=== PATIENT | male | born 1950 | race Caucasian/White ===

== ENCOUNTER 2018-05-31 07:24 | Day surgery (SDC) | payer OTHER ==
[2018-05-31] MEDS: BETADINE OPTH PREP OP PRN ×2 (08:27→09:31)
[2018-05-31] MEDS: TETRACAINE 0.5% UNIT-DOSE OP PRN ×2 (08:27→09:31)
[2018-05-31] MEDS: CYCLOGYL 2% OPTH OP PRN ×3 (08:28→08:38)
[2018-05-31] MEDS ORDERED: BRIMONIDINE TARTRATE 0.2% OPTH SOL OP PRN (08:35)
[2018-05-31] MEDS ORDERED: LIDOCAINE 1% 20 ML MDV ID STA (08:35)
[2018-05-31] MEDS ORDERED: LIDOCAINE 1%/PHENYLEPHRINE 1.5% BSS (SURGERY) INTRAOCULA ONE (08:35)
[2018-05-31] MEDS ORDERED: BSS WITH EPINEPHRINE OP ONE (08:35)
[2018-05-31] MEDS ORDERED: ZOFRAN 4 MG/2 ML IVP ONE (08:35)
[2018-05-31] MEDS ORDERED: DEX-MOXI-KETOR OPTH INJ 1/0.5/0.4 MG/ML IO ONE (08:35)
[2018-05-31 08:46] VITALS: TEMP 97.8
[2018-05-31] MEDS ORDERED: SUBLIMAZE ONE (09:24)
[2018-05-31] MEDS ORDERED: VERSED ONE (09:24)
[2018-05-31] MEDS ORDERED: ZOFRAN 4 MG/2 ML ONE (09:24)
[2018-05-31 13:35] VITALS: BP 174/70
== END 2018-05-31 10:15 | disposition home or self-care (01) ==
LOC: SURG 07:24
PROVIDERS: ATTEND Ophthalmology
DX: H25.812 Combined forms of age-related cataract, left eye (principal)

== ENCOUNTER 2018-06-14 07:17 | Day surgery (SDC) ==
[~2018-06-14 07:17] MED LIST: BRIMONIDINE TARTRATE 0.2% OPTH SOL OP PRN; DEX-MOXI-KETOR OPTH INJ 1/0.5/0.4 MG/ML IO ONE; ZOFRAN 4 MG/2 ML IVP ONE
[2018-06-14] MEDS ORDERED: LIDOCAINE 1% 20 ML MDV ID STA (07:52)
[2018-06-14] MEDS: TETRACAINE 0.5% UNIT-DOSE OP PRN ×4 (08:00→08:38)
[2018-06-14] MEDS: CYCLOGYL 2% OPTH OP PRN ×3 (08:00→08:10)
[2018-06-14] MEDS: BETADINE OPTH PREP OP PRN ×2 (08:00→08:25)
[2018-06-14] MEDS: BSS WITH EPINEPHRINE OP ONE ×2 (08:29→08:38)
[2018-06-14] MEDS: LIDOCAINE 1%/PHENYLEPHRINE 1.5% BSS (SURGERY) INTRAOCULA ONE ×2 (08:30→08:38)
[2018-06-14] MEDS ORDERED: VERSED ONE (08:32)
[2018-06-14] MEDS ORDERED: ZOFRAN 4 MG/2 ML ONE (08:32)
[2018-06-14] MEDS ORDERED: SUBLIMAZE ONE (08:32)
[2018-06-14 12:37] VITALS: TEMP 97
[2018-06-14 16:05] VITALS: BP 121/78
== END 2018-06-14 09:20 | disposition home or self-care (01) ==
LOC: SURG 07:17
PROVIDERS: ATTEND Ophthalmology
DX: H25.811 Combined forms of age-related cataract, right eye (principal)